=== PATIENT | male | born 1990 | race African-American/Black ===

== ENCOUNTER 2020-01-10 08:51 | Emergency (ER) | payer OTHER ==
[~2020-01-10] VITALS: Ht 182.9 cm; Wt 68.0 kg
[2020-01-10 08:55] VITALS: BP 146/93
[2020-01-10] MEDS ORDERED: METOCLOPRAMIDE 10 MG/2 ML INJ VIAL IVP ONE (09:00)
[2020-01-10] MEDS ORDERED: NACL 0.9% 1,000 ML IV ONE (09:00)
--- NOTE | 2020-01-10 09:01 | NUR ---
29 YO MALE BIBA AB PAIN RADIAITNG TO BACK WITH N/V/D X 1 DAY ADMITS TO SMOKING MARIJUANA PMH- DENIES
[2020-01-10] MEDS ORDERED: KETOROLAC 30 MG/ML VIAL IVP ONE (09:05)
[2020-01-10 09:19] LABS: BASOPHILS % (AUTO) 0.6 % (0.0-2.0); EOSINOPHILS % (AUTO) 0.2 % (0.0-4.0); HEMATOCRIT 48.2 % (36-52); HEMOGLOBIN 15.7 g/dL (12.0-18.0); LYMPHOCYTES # (AUTO) 0.9 K/uL (2.0-11.5); LYMPHOCYTES % (AUTO) 11.1 % (20.5-51.1); MEAN CORPUSCULAR HEMOGLOBIN 31 pg (27-31); MEAN CORPUSCULAR HGB CONC 33 g/dL (33-37); MEAN CORPUSCULAR VOLUME 95.6 fL (80-94); MONOCYTES # (AUTO) 0.5 K/uL (0.8-1.0); MONOCYTES % (AUTO) 6.2 % (1.7-9.3); NEUTROPHILS % (AUTO) 81.9 % (42.2-75.2); PLATELET COUNT (AUTO) 119 K/uL (140-450); RED BLOOD CELL COUNT(AUTO) 5.04 MIL/uL (4.20-6.10); RED CELL DISTRIBUTION WIDTH 14.3 % (11.6-13.7); WHITE BLOOD COUNT (AUTO) 8.5 K/uL (4.8-10.8)
[2020-01-10 09:34] LABS: ALBUMIN 4.4 g/dL (3.4-5.0); CARBON DIOXIDE 24.6 mmol/L (21-32); POTASSIUM 3.6 mmol/L (3.5-5.1); TOTAL BILIRUBIN 0.6 mg/dL (0.0-1.0)
[2020-01-10 10:03] LABS: APPEARANCE,URINE SL CLOUDY (CLEAR); BILIRUBIN,URINE NEGATIVE (NEGATIVE); BLOOD, URINE NEGATIVE (NEGATIVE); COLOR,URINE DARK YELLOW (YELLOW); LEUKOCYTE ESTERASE ,URINE NEGATIVE (NEGATIVE); NITRITE, URINE NEGATIVE (NEGATIVE); UGLUCOSE NEGATIVE (NEGATIVE)
[2020-01-10 10:13] VITALS: BP 142/82
[2020-01-10 10:25] LABS: BARBITURATE, URINE NEGATIVE ng/ml (NEG <=200); BENZODIAZEPINE, URINE NEGATIVE ng/mL (NEG <=200); CANNABINOID, URINE POSITIVE ng/mL (NEG <=50); COCAINE, URINE NEGATIVE ng/mL (NEG <=300); PHENCYCLIDINE SCREEN,URINE NEGATIVE ng/mL (NEG <=25)
[2020-01-10 10:26] LABS: OPIATE, URINE NEGATIVE ng/mL (NEG <=2000)
[2020-01-10 10:30] LABS: RBC,URINE 0-5 /HPF (0-5)
== END 2020-01-10 10:13 | disposition home or self-care (01) ==
LOC: MED 08:51
DX: R10.84 Generalized abdominal pain (principal); R11.2 Nausea with vomiting, unspecified; D69.6 Thrombocytopenia, unspecified; F12.10 Cannabis abuse, uncomplicated
CPT/HCPCS: 36415; 71045; 80053; 80305; 81001; 83690; 85025; 87086; 96361; 96374; 96375; 99284; G0482; J1885; J2765; J7030; Q0092

== ENCOUNTER 2022-01-17 15:02 | Emergency (ER) | payer OTHER ==
[~2022-01-17] VITALS: Ht 182.9 cm; Wt 68.0 kg
[2022-01-17 15:09] VITALS: BP 145/63
--- NOTE | 2022-01-17 15:10 | NUR ---
BIBA BLS TO ER BED 2
[2022-01-17] MEDS ORDERED: KETOROLAC 15 MG/ML VIAL IVP ONE (15:25)
[2022-01-17] MEDS ORDERED: NACL 0.9% 1,000 ML IV ONE (15:25)
[2022-01-17] MEDS ORDERED: PANTOPRAZOLE 40 MG INJ VIAL IVP ONE (15:25)
[2022-01-17] MEDS ORDERED: METOCLOPRAMIDE 10 MG/2 ML INJ VIAL IVP ONE (15:25)
--- NOTE | 2022-01-17 15:35 | NUR ---
lab at bedside.
--- NOTE | 2022-01-17 15:48 | NUR ---
radiology at bedside.
[2022-01-17 15:54] LABS: BASOPHILS % (AUTO) 0.3 % (0.0-2.0); EOSINOPHILS % (AUTO) 0.1 % (0.0-4.0); HEMATOCRIT 48.2 % (36-52); HEMOGLOBIN 15.8 g/dL (12.0-18.0); LYMPHOCYTES # (AUTO) 1.6 K/uL (2.0-11.5); LYMPHOCYTES % (AUTO) 25.7 % (20.5-51.1); MEAN CORPUSCULAR HEMOGLOBIN 31 pg (27-31); MEAN CORPUSCULAR HGB CONC 33 g/dL (33-37); MEAN CORPUSCULAR VOLUME 94.1 fL (80-94); MONOCYTES # (AUTO) 0.7 K/uL (0.8-1.0); NEUTROPHILS # (AUTO) 3.8 K/uL (1.8-7.7); NEUTROPHILS % (AUTO) 62.9 % (42.2-75.2); PLATELET COUNT (AUTO) 95 K/uL (140-450); RED BLOOD CELL COUNT(AUTO) 5.12 MIL/uL (4.20-6.10); WHITE BLOOD COUNT (AUTO) 6.1 K/uL (4.8-10.8)
[2022-01-17 16:16] LABS: ALBUMIN 4.2 g/dL (3.4-5.0); ANION GAP 12.8 (8-16); CARBON DIOXIDE 24.8 mmol/L (21-32); CREATININE 0.9 mg/dL (0.6-1.3); POTASSIUM 3.6 mmol/L (3.5-5.1); TOTAL BILIRUBIN 0.4 mg/dL (0.0-1.0)
[2022-01-17 16:21] LABS: LIPASE 109 U/L (73-393)
--- NOTE | 2022-01-17 16:26 | NUR ---
PTS XOCHILT, CALL FOR UPDATE- KIMBERLEY CALDWELL [phone]
--- NOTE | 2022-01-17 16:34 | NUR ---
Patient is being taken via gurney for imaging.
--- NOTE | 2022-01-17 16:38 | NUR ---
31 y/o male bib for abdominal pain, nausea and vomiting x2 hours ago. Patient was eating raising canes before abdominal pain started. Patient was given Zofran by EMS. Patient also c/o chest pain and tightness. Medical History: Kidney Stones NKDA
[2022-01-17] MEDS ORDERED: MORPHINE SULFATE 4 MG/ML SYR IVP ONE (17:45)
--- NOTE | 2022-01-17 17:46 | NUR ---
Patient pulled out IV. Will re-insert new IV.
--- NOTE | 2022-01-17 17:53 | NUR ---
Dr. Thompson evaluating patient at bedside.
[2022-01-17] MEDS ORDERED: HALOPERIDOL IM 5 MG/ML VIAL IVP ONE (17:55)
[2022-01-17] MEDS ORDERED: diphenhydrAMINE 50 MG/ML VIAL IVP ONE (17:55)
--- NOTE | 2022-01-17 19:20 | NUR ---
Pt report given to JAMIL Solis. Transfer of care at this time.
[2022-01-17] MEDS ORDERED: OMEP20EC11 PO (19:25)
[2022-01-17] MEDS ORDERED: HYDR-5191 PO (19:25)
[2022-01-17] MEDS ORDERED: ONDA-188 PO (19:25)
[2022-01-17 20:24] VITALS: BP 89/43
--- NOTE | 2022-01-17 20:25 | NUR ---
Patient discharged with v/s stable. Written and verbal after care instructions given and explained. Patient alert, oriented and verbalized understanding of instructions. Ambulatory with steady gait. All questions addressed prior to discharge. ID band removed. Patient advised to follow up with PMD. Rx of ZOFRAN, PRILOSEC, AND HYDROCODON-ACETAMINOPHEN given. Patient educated on indication of medication including possible reaction and side effects. Opportunity to ask questions provided and answered.
== END 2022-01-17 20:25 | disposition home or self-care (01) ==
LOC: MED 15:02
DX: R11.2 Nausea with vomiting, unspecified (principal); R10.84 Generalized abdominal pain; Z79.899 Other long term (current) drug therapy; Z79.891 Long term (current) use of opiate analgesic
CPT/HCPCS: 36415; 71045; 74176; 80053; 83690; 83880; 84484; 85025; 93005; 96361; 96374; 96375; 99285; C9113; G0482; J1200; J1630; J1885; J2270; J2765; J7030; Q0092

== ENCOUNTER 2022-03-14 10:18 | Emergency (ER) | payer OTHER ==
[~2022-03-14] VITALS: Ht 182.9 cm; Wt 68.0 kg
[~2022-03-14 10:18] MED LIST: HYDR-5191 PO; OMEP20EC11 PO; ONDA-188 PO
--- NOTE | 2022-03-14 10:26 | NUR ---
PT W/C ASSISTED TO ER BED 6
[2022-03-14 10:33] VITALS: BP 147/86
[2022-03-14] MEDS ORDERED: NACL 0.9% 1,000 ML IV ONE (10:35)
[2022-03-14] MEDS ORDERED: HALOPERIDOL IM 5 MG/ML VIAL IM ONE (10:35)
--- NOTE | 2022-03-14 11:07 | NUR ---
31/M PRESENTS TO ED WITH C/O ABDOMINAL PAIN, N/V/D AND SOB SINCE THIS MORNING. STATES HE GETS THESE EPISODES S/P SMOKING MARIJUANA, REPORTS LAST USE WAS 2 DAYS AGO. PATIENT DENIES ALCOHOL OR OTHER DRUG USE, PATIENT REPORTS 10/10 PAIN IN ALL 4 QUADRANTS, REPORTS ONE EPISODE OF DIARRHEA THIS MORNING. DENIES FEVERS, COUGH, CHILLS, CP, SOB, O2 98% UPON ARRIVAL TO ED.
[2022-03-14 11:28] LABS: BASOPHILS % (AUTO) 0.3 % (0.0-2.0); EOSINOPHILS % (AUTO) 0.4 % (0.0-4.0); HEMATOCRIT 49.7 % (36-52); HEMOGLOBIN 16.6 g/dL (12.0-18.0); LYMPHOCYTES # (AUTO) 1.4 K/uL (2.0-11.5); LYMPHOCYTES % (AUTO) 21.9 % (20.5-51.1); MEAN CORPUSCULAR HEMOGLOBIN 32 pg (27-31); MEAN CORPUSCULAR HGB CONC 33 g/dL (33-37); MONOCYTES # (AUTO) 0.5 K/uL (0.8-1.0); MONOCYTES % (AUTO) 8.6 % (1.7-9.3); NEUTROPHILS # (AUTO) 4.4 K/uL (1.8-7.7); NEUTROPHILS % (AUTO) 68.8 % (42.2-75.2); PLATELET COUNT (AUTO) 118 K/uL (140-450); RED BLOOD CELL COUNT(AUTO) 5.23 MIL/uL (4.20-6.10); RED CELL DISTRIBUTION WIDTH 14.1 % (11.6-13.7); WHITE BLOOD COUNT (AUTO) 6.3 K/uL (4.8-10.8)
[2022-03-14 11:41] LABS: ALBUMIN 4.2 g/dL (3.4-5.0); ANION GAP 12.9 (8-16); CARBON DIOXIDE 27.8 mmol/L (21-32); CREATININE 1.1 mg/dL (0.6-1.3); POTASSIUM 3.7 mmol/L (3.5-5.1); TOTAL BILIRUBIN 0.6 mg/dL (0.0-1.0)
--- NOTE | 2022-03-14 12:00 | NUR ---
PATIENT RESTING IN BED WITH EYES CLOSED, ON BEDSIDE CHEMICAL EDUCATOR. WILL CONTINUE TO MONITOR.
[2022-03-14] MEDS ORDERED: MORPHINE SULFATE 4 MG/ML SYR IM ONE (12:30)
[2022-03-14 13:07] VITALS: BP 124/83
--- NOTE | 2022-03-14 13:07 | NUR ---
IV removed, catheter intact and site benign. Applied folded 4x4 gauze and tape to stop bleeding.
--- NOTE | 2022-03-14 13:08 | NUR ---
Patient discharged with v/s stable. Written and verbal after care instructions ABOUT CYCLIC VOMITING SYNDROME given and explained. Patient verbalized understanding. Ambulatory with steady gait. All questions addressed prior to discharge. Advised to follow up with PMD.
== END 2022-03-14 13:08 | disposition home or self-care (01) ==
LOC: MED 10:18
DX: R11.15 Cyclical vomiting syndrome unrelated to migraine (principal)
CPT/HCPCS: 36415; 80053; 83690; 85025; 96360; 96372; 99284; J1630; J2270; J7030

== ENCOUNTER 2022-10-10 06:15 | Emergency (ER) | payer OTHER ==
[~2022-10-10] VITALS: Ht 182.9 cm; Wt 68.0 kg
[2022-10-10 06:20] VITALS: BP 140/99
--- NOTE | 2022-10-10 06:31 | NUR ---
rolf als to bed #6
[2022-10-10] MEDS ORDERED: NACL 0.9% 1,000 ML IV SCH (06:45)
[2022-10-10] MEDS ORDERED: ONDANSETRON 4 MG/2 ML VIAL IVP ONE (06:45)
[2022-10-10] MEDS ORDERED: KETOROLAC 30 MG/ML VIAL IVP ONE (06:45)
[2022-10-10 07:03] LABS: BASOPHILS % (AUTO) 0.2 % (0.0-2.0); EOSINOPHILS % (AUTO) 0.3 % (0.0-4.0); HEMOGLOBIN 15.5 g/dL (12.0-18.0); LYMPHOCYTES # (AUTO) 1.6 K/uL (2.0-11.5); LYMPHOCYTES % (AUTO) 16.8 % (20.5-51.1); MEAN CORPUSCULAR HEMOGLOBIN 31 pg (27-31); MEAN CORPUSCULAR HGB CONC 33 g/dL (33-37); MEAN CORPUSCULAR VOLUME 94.9 fL (80-94); MONOCYTES # (AUTO) 0.9 K/uL (0.8-1.0); MONOCYTES % (AUTO) 9.7 % (1.7-9.3); NEUTROPHILS # (AUTO) 6.8 K/uL (1.8-7.7); PLATELET COUNT (AUTO) 114 K/uL (140-450); RED BLOOD CELL COUNT(AUTO) 4.96 MIL/uL (4.20-6.10); RED CELL DISTRIBUTION WIDTH 13.4 % (11.6-13.7); WHITE BLOOD COUNT (AUTO) 9.3 K/uL (4.8-10.8)
--- NOTE | 2022-10-10 07:28 | NUR ---
Received report from JAMIL Dong for transfer of care.
--- NOTE | 2022-10-10 07:36 | NUR ---
PT RETCHING IN BED, NO EMESIS NOTED
[2022-10-10 07:40] LABS: ALBUMIN 4.3 g/dL (3.4-5.0); ANION GAP 13.6 (8-16); CARBON DIOXIDE 26.1 mmol/L (21-32); CREATININE 1.1 mg/dL (0.6-1.3); POTASSIUM 3.7 mmol/L (3.5-5.1); TOTAL BILIRUBIN 0.7 mg/dL (0.0-1.0)
--- NOTE | 2022-10-10 07:50 | NUR ---
PT REQUESTING MORPHINE FOR PAIN, DR BORJA MADE AWARE
[2022-10-10] MEDS ORDERED: HALOPERIDOL IM 5 MG/ML VIAL IM ONE (07:55)
[2022-10-10] MEDS ORDERED: MORPHINE SULFATE 4 MG/ML SYR IVP ONE (07:55)
[2022-10-10] MEDS ORDERED: ONDA8TAB87 PO (09:28)
[2022-10-10 09:37] VITALS: BP 119/56
--- NOTE | 2022-10-10 09:37 | NUR ---
Patient discharged with v/s stable. Written and verbal after care instructions given. Patient alert, oriented and verbalized understanding of instructions. Ambulatory with steady gait. All questions addressed prior to discharge. ID band removed. Patient advised to follow up with PMD. Rx of Zofran given. Opportunity to ask questions provided and answered.
--- NOTE | 2022-10-10 09:40 | NUR ---
The patient's care was reviewed and supervised by Alissa Almanzar RN.
== END 2022-10-10 09:37 | disposition home or self-care (01) ==
LOC: MED 06:15
DX: R10.9 Unspecified abdominal pain (principal); R11.2 Nausea with vomiting, unspecified; R19.7 Diarrhea, unspecified; Z79.899 Other long term (current) drug therapy
CPT/HCPCS: 36415; 80053; 83690; 85025; 96361; 96372; 96374; 96375; 99284; J1630; J1885; J2270; J2405; J7030

== ENCOUNTER 2022-10-14 07:12 | Emergency (ER) | payer OTHER ==
[~2022-10-14] VITALS: Ht 177.8 cm; Wt 72.6 kg
[2022-10-14 07:12] VITALS: BP 109/62
[~2022-10-14 07:12] MED LIST changes: +ONDA8TAB87 PO
--- NOTE | 2022-10-14 07:12 | NUR ---
TO BED AMBULATORY, BIBA FROM HOME , WITH C/O GENERALIZED ABD PAIN.
[2022-10-14] MEDS ORDERED: OMEP40EC23 PO (07:53)
[2022-10-14 07:55] VITALS: BP 109/62
--- NOTE | 2022-10-14 08:03 | NUR ---
Patient discharged with v/s stable. Written and verbal after care instructions given and explained. Patient alert, oriented and verbalized understanding of instructions. Ambulatory with steady gait. All questions addressed prior to discharge. ID band removed. Patient advised to follow up with PMD. Rx of prilosec given. Patient educated on indication of medication including possible reaction and side effects. Opportunity to ask questions provided and answered.
== END 2022-10-14 08:03 | disposition home or self-care (01) ==
LOC: MED 07:12
DX: R10.84 Generalized abdominal pain (principal); F12.10 Cannabis abuse, uncomplicated; Z79.899 Other long term (current) drug therapy; Z79.891 Long term (current) use of opiate analgesic
CPT/HCPCS: 99283

== ENCOUNTER 2022-11-20 07:24 | Emergency (ER) | payer OTHER ==
[~2022-11-20] VITALS: Ht 172.7 cm; Wt 74.8 kg
[~2022-11-20 07:24] MED LIST changes: +OMEP40EC23 PO
[2022-11-20 07:29] VITALS: BP 127/80
[2022-11-20] MEDS ORDERED: KETOROLAC 30 MG/ML VIAL IVP ONE (07:50)
[2022-11-20] MEDS ORDERED: HALOPERIDOL IM 5 MG/ML VIAL IM ONE (07:50)
[2022-11-20] MEDS ORDERED: ONDANSETRON 4 MG/2 ML VIAL IVP ONE (07:50)
--- NOTE | 2022-11-20 08:10 | NUR ---
PT BIB AMBULANCE ACLS, C/O NVD, ABD PAIN, 10/10 PAIN SINCE THIS MORNING, PT APPEARS DIAPHORETIC. IV INSERTED ON RT AC 20G. MEDICATED PER ORDER. SAFETY MAINTAINED.
--- NOTE | 2022-11-20 08:54 | NUR ---
PT STATES HE IS STILL HAVING PAIN. DR DOYLE INFORMED.
[2022-11-20] MEDS ORDERED: MORPHINE SULFATE 4 MG/ML SYR IVP ONE (09:05)
[2022-11-20] MEDS ORDERED: ONDA8TAB87 PO (09:08)
[2022-11-20 09:29] VITALS: BP 105/69
--- NOTE | 2022-11-20 09:34 | NUR ---
The patient's care was reviewed and supervised by ED Agency Nurse 8, RN, RN.
--- NOTE | 2022-11-20 09:34 | NUR ---
Patient discharged with v/s stable. Written and verbal after care instructions given and explained. Patient alert, oriented and verbalized understanding of instructions. Ambulatory with steady gait. All questions addressed prior to discharge. ID band removed. Patient advised to follow up with PMD. Rx of ONDANSETRON HCI given. Patient educated on indication of medication including possible reaction and side effects. Opportunity to ask questions provided and answered.
== END 2022-11-20 09:34 | disposition home or self-care (01) ==
LOC: MED 07:24
DX: R10.9 Unspecified abdominal pain (principal); R11.2 Nausea with vomiting, unspecified; R19.7 Diarrhea, unspecified; Z79.899 Other long term (current) drug therapy
CPT/HCPCS: 96372; 96374; 96375; 99284; J1630; J1885; J2270; J2405

== ENCOUNTER 2023-08-29 08:25 | Emergency (ER) | payer OTHER ==
[~2023-08-29] VITALS: Ht 182.9 cm; Wt 63.5 kg
[2023-08-29 08:40] VITALS: BP 118/64; PULSE 108; RESP 20; TEMP 98; O2SAT 100
[2023-08-29] MEDS ORDERED: LIDOCAINE 5% 1 EA PATCH TP ONE (09:15)
[2023-08-29] MEDS ORDERED: KETOROLAC 30 MG/ML VIAL IM ONE (09:15)
[2023-08-29] MEDS ORDERED: LID5T TP (10:04)
[2023-08-29] MEDS ORDERED: CYCL-711 PO (10:04)
[2023-08-29 10:25] VITALS: BP 120/65; PULSE 88; RESP 20; TEMP 98; O2SAT 100
== END 2023-08-29 10:25 | disposition home or self-care (01) ==
LOC: MED 08:25
DX: M25.512 Pain in left shoulder (principal); K21.9 Gastro-esophageal reflux disease without esophagitis; Z79.899 Other long term (current) drug therapy
CPT/HCPCS: 96372; 99283; J1885

== ENCOUNTER 2023-09-18 08:12 | Emergency (ER) | payer OTHER ==
[~2023-09-18] VITALS: Ht 182.9 cm; Wt 65.8 kg
[~2023-09-18 08:12] MED LIST changes: +CYCL-711 PO; +LID5T TP
[2023-09-18 08:15] VITALS: BP 150/99; PULSE 70; RESP 16; TEMP 97; O2SAT 98
[2023-09-18] MEDS: HALOPERIDOL IM 5 MG/ML VIAL IM ONE (08:58)
[2023-09-18 09:26] LABS: BASOPHILS % (AUTO) 0.5 % (0.0-2.0); EOSINOPHILS # (AUTO) 0.1 K/uL (0-0.4); EOSINOPHILS % (AUTO) 0.9 % (0.0-4.0); HEMATOCRIT 46.9 % (36-52); HEMOGLOBIN 15.9 g/dL (12.0-18.0); LYMPHOCYTES # (AUTO) 1.6 K/uL (2.0-11.5); LYMPHOCYTES % (AUTO) 19.6 % (20.5-51.1); MEAN CORPUSCULAR HEMOGLOBIN 32 pg (27-31); MEAN CORPUSCULAR HGB CONC 34 g/dL (33-37); MEAN CORPUSCULAR VOLUME 94.4 fL (80-94); MONOCYTES # (AUTO) 0.7 K/uL (0.8-1.0); MONOCYTES % (AUTO) 8.1 % (1.7-9.3); NEUTROPHILS # (AUTO) 5.9 K/uL (1.8-7.7); NEUTROPHILS % (AUTO) 70.9 % (42.2-75.2); PLATELET COUNT (AUTO) 146 K/uL (140-450); RED BLOOD CELL COUNT(AUTO) 4.97 MIL/uL (4.20-6.10); RED CELL DISTRIBUTION WIDTH 13.8 % (11.6-13.7); WHITE BLOOD COUNT (AUTO) 8.3 K/uL (4.8-10.8)
[2023-09-18 09:36] LABS: CALCIUM 8.8 mg/dL (8.5-10.1); CARBON DIOXIDE 28.2 mmol/L (21-32); POTASSIUM 4.2 mmol/L (3.5-5.1)
[2023-09-18 09:42] LABS: ALBUMIN 3.8 g/dL (3.4-5.0); BILIRUBIN,DIRECT 0.1 mg/dL (0.0-0.3); TOTAL BILIRUBIN 0.3 mg/dL (0.0-1.0); TOTAL PROTEIN, SERUM 8.5 g/dL (6.4-8.2)
[2023-09-18 09:57] LABS: AMPHETAMINE, URINE NEGATIVE ng/ml (NEG <=1000); BARBITURATE, URINE NEGATIVE ng/ml (NEG <=200); BENZODIAZEPINE, URINE NEGATIVE ng/mL (NEG <=200); CANNABINOID, URINE POSITIVE ng/mL (NEG <=50); COCAINE, URINE NEGATIVE ng/mL (NEG <=300); OPIATE, URINE NEGATIVE ng/mL (NEG <=2000); PHENCYCLIDINE SCREEN,URINE NEGATIVE ng/mL (NEG <=25)
[2023-09-18] MEDS: KETOROLAC 30 MG/ML VIAL IM ONE (12:09)
[2023-09-18] MEDS ORDERED: ONDA-188 SL (12:18)
[2023-09-18] MEDS ORDERED: BEN10 PO (12:18)
[2023-09-18 12:53] VITALS: BP 150/99; PULSE 70; RESP 16; TEMP 97; O2SAT 98
== END 2023-09-18 12:53 | disposition home or self-care (01) ==
LOC: MED 08:12
DX: R11.15 Cyclical vomiting syndrome unrelated to migraine (principal); K21.9 Gastro-esophageal reflux disease without esophagitis; Z79.899 Other long term (current) drug therapy
CPT/HCPCS: 36415; 80048; 80076; 80305; 85025; 96372; 99284; J1630; J1885

== ENCOUNTER 2023-09-21 06:31 | Emergency (ER) | payer OTHER ==
[~2023-09-21] VITALS: Ht 180.3 cm; Wt 70.3 kg
[~2023-09-21 06:31] MED LIST changes: +BEN10 PO; +ONDA-188 SL
[2023-09-21 06:38] VITALS: BP 161/89; PULSE 91; RESP 16; TEMP 98.1; O2SAT 99
[2023-09-21] MEDS: KETOROLAC 60 MG/2 ML VIAL IM ONE (07:00)
[2023-09-21] MEDS: HALOPERIDOL IM 5 MG/ML VIAL IM ONE (07:01)
[2023-09-21] MEDS ORDERED: IBUP-2213 PO (07:14)
[2023-09-21] MEDS ORDERED: PROM25TA27 PO (07:14)
[2023-09-21 08:32] VITALS: BP 126/70; PULSE 88; RESP 19; TEMP 98.3; O2SAT 95
== END 2023-09-21 08:32 | disposition home or self-care (01) ==
LOC: MED 06:31
DX: R11.2 Nausea with vomiting, unspecified (principal); R10.84 Generalized abdominal pain; K21.9 Gastro-esophageal reflux disease without esophagitis; Z79.899 Other long term (current) drug therapy
CPT/HCPCS: 96372; 99284; J1630; J1885

== ENCOUNTER 2023-09-25 02:49 | Emergency (ER) | payer OTHER ==
[~2023-09-25] VITALS: Ht 180.3 cm; Wt 68.0 kg
[~2023-09-25 02:49] MED LIST changes: +IBUP-2213 PO; +PROM25TA27 PO
[2023-09-25 02:56] VITALS: BP 134/90; PULSE 84; RESP 16; TEMP 98.5; O2SAT 99
[2023-09-25] MEDS ORDERED: KETOROLAC 60 MG/2 ML VIAL IM ONE (03:25)
[2023-09-25] MEDS ORDERED: HALOPERIDOL IM 5 MG/ML VIAL ONE (03:30)
[2023-09-25] MEDS ORDERED: MORPHINE SULFATE 4 MG/ML SYR ONE (03:30)
[2023-09-25] MEDS: HALOPERIDOL IM 5 MG/ML VIAL IM ONE (03:33)
[2023-09-25] MEDS: MORPHINE SULFATE 4 MG/ML SYR IM ONE (03:34)
[2023-09-25 04:02] VITALS: BP 140/95; PULSE 59; RESP 18; TEMP 97.6; O2SAT 100
== END 2023-09-25 04:02 | disposition home or self-care (01) ==
LOC: MED 02:49
DX: R11.15 Cyclical vomiting syndrome unrelated to migraine (principal); R10.13 Epigastric pain; K21.9 Gastro-esophageal reflux disease without esophagitis; F12.90 Cannabis use, unspecified, uncomplicated; Z79.899 Other long term (current) drug therapy
CPT/HCPCS: 96372; 99284; J1630; J2270

== ENCOUNTER 2023-11-07 12:25 | Emergency (ER) | payer OTHER ==
[~2023-11-07] VITALS: Ht 182.9 cm; Wt 68.0 kg
[2023-11-07 12:50] VITALS: BP 117/68; PULSE 100; RESP 16; TEMP 97.7; O2SAT 99
[2023-11-07] MEDS: KETOROLAC 30 MG/ML VIAL IM ONE (13:55)
[2023-11-07] MEDS ORDERED: IBUP-2213 PO (14:28)
[2023-11-07] MEDS ORDERED: CYCL-711 PO (14:28)
[2023-11-07 15:02] VITALS: BP 107/66; PULSE 68; O2SAT 99
== END 2023-11-07 15:02 | disposition home or self-care (01) ==
LOC: MED 12:25
DX: S13.4XXA Sprain of ligaments of cervical spine, initial encounter (principal); S43.402A Unspecified sprain of left shoulder joint, initial encounter; S43.401A Unspecified sprain of right shoulder joint, initial encounter; R51.9 Headache, unspecified; K21.9 Gastro-esophageal reflux disease without esophagitis; F12.90 Cannabis use, unspecified, uncomplicated; Z79.899 Other long term (current) drug therapy; V89.2XXA Person injured in unspecified motor-vehicle accident, traffic, initial encounter; Y93.89 Activity, other specified; Y92.410 Unspecified street and highway as the place of occurrence of the external cause; Y99.8 Other external cause status
CPT/HCPCS: 72040; 73030; 96372; 99284; J1885

== ENCOUNTER 2024-01-06 10:01 | Emergency (ER) | payer OTHER ==
[~2024-01-06] VITALS: Ht 172.7 cm; Wt 60.8 kg
[~2024-01-06 10:01] MED LIST changes: +HYDR-5071 PO; -HYDR-5191 PO
[2024-01-06 10:11] VITALS: BP 135/96; PULSE 80; RESP 18; TEMP 97; O2SAT 99
[2024-01-06] MEDS: NACL 0.9% 1,000 ML IV ONE (10:25)
[2024-01-06] MEDS: HALOPERIDOL IM 5 MG/ML VIAL IVP ONE (10:49)
[2024-01-06] MEDS: KETOROLAC 30 MG/ML VIAL IVP ONE (10:49)
[2024-01-06 11:01] LABS: BASOPHILS % (AUTO) 0.4 % (0.0-2.0); EOSINOPHILS % (AUTO) 0.3 % (0.0-4.0); HEMATOCRIT 47.4 % (36-52); LYMPHOCYTES # (AUTO) 1.7 K/uL (2.0-11.5); LYMPHOCYTES % (AUTO) 18.8 % (20.5-51.1); MEAN CORPUSCULAR HEMOGLOBIN 32 pg (27-31); MEAN CORPUSCULAR HGB CONC 34 g/dL (33-37); MEAN CORPUSCULAR VOLUME 94.3 fL (80-94); MONOCYTES # (AUTO) 0.5 K/uL (0.8-1.0); MONOCYTES % (AUTO) 5.7 % (1.7-9.3); NEUTROPHILS # (AUTO) 6.9 K/uL (1.8-7.7); NEUTROPHILS % (AUTO) 74.8 % (42.2-75.2); PLATELET COUNT (AUTO) 114 K/uL (140-450); RED BLOOD CELL COUNT(AUTO) 5.02 MIL/uL (4.20-6.10); RED CELL DISTRIBUTION WIDTH 13.6 % (11.6-13.7); WHITE BLOOD COUNT (AUTO) 9.2 K/uL (4.8-10.8)
[2024-01-06 11:14] LABS: ANION GAP 14.3 (8-16); CALCIUM 9.5 mg/dL (8.5-10.1); CARBON DIOXIDE 22.9 mmol/L (21-32); CREATININE 0.9 mg/dL (0.6-1.3); POTASSIUM 4.2 mmol/L (3.5-5.1)
[2024-01-06] MEDS: MORPHINE SULFATE 4 MG/ML SYR IVP ONE (12:16)
[2024-01-06 12:25] LABS: ALBUMIN 3.9 g/dL (3.4-5.0); BILIRUBIN,DIRECT 0.1 mg/dL (0.0-0.3); TOTAL PROTEIN, SERUM 7.3 g/dL (6.4-8.2)
[2024-01-06 12:26] LABS: TOTAL BILIRUBIN 0.5 mg/dL (0.0-1.0)
[2024-01-06] MEDS ORDERED: ONDA-188 PO (12:53)
[2024-01-06 13:25] VITALS: BP 111/61; PULSE 96; RESP 21; TEMP 98.3; O2SAT 100
[2024-01-07] MEDS ORDERED: CAPS42.514 TP (11:14)
[2024-01-07] MEDS ORDERED: METO-485 PO (11:14)
== END 2024-01-06 13:25 | disposition home or self-care (01) ==
LOC: MED 10:01
DX: R11.2 Nausea with vomiting, unspecified (principal); R10.84 Generalized abdominal pain; K21.9 Gastro-esophageal reflux disease without esophagitis; Z79.1 Long term (current) use of non-steroidal anti-inflammatories (NSAID); Z79.899 Other long term (current) drug therapy
CPT/HCPCS: 36415; 80048; 80076; 83690; 85025; 96361; 96374; 96375; 99284; J1630; J1885; J2270; J7030

== ENCOUNTER 2024-01-07 07:43 | Emergency (ER) | payer OTHER ==
[~2024-01-07] VITALS: Ht 182.9 cm; Wt 59.0 kg
[2024-01-07 07:48] VITALS: BP 160/98; PULSE 62; RESP 18; TEMP 97.8; O2SAT 98
[2024-01-07] MEDS: DEXT 5% /NACL 0.9% 1,000 ML IV ONE (09:11)
[2024-01-07] MEDS: HALOPERIDOL IM 5 MG/ML VIAL IVP ONE (09:12)
[2024-01-07] MEDS: diphenhydrAMINE 50 MG/ML VIAL IVP ONE (09:18)
[2024-01-07 09:21] LABS: BASOPHILS % (AUTO) 0.3 % (0.0-2.0); EOSINOPHILS % (AUTO) 0.2 % (0.0-4.0); HEMATOCRIT 44.5 % (36-52); LYMPHOCYTES # (AUTO) 1.4 K/uL (2.0-11.5); MEAN CORPUSCULAR HEMOGLOBIN 32 pg (27-31); MEAN CORPUSCULAR HGB CONC 34 g/dL (33-37); MEAN CORPUSCULAR VOLUME 94.1 fL (80-94); MONOCYTES # (AUTO) 0.5 K/uL (0.8-1.0); MONOCYTES % (AUTO) 7.4 % (1.7-9.3); NEUTROPHILS % (AUTO) 72.1 % (42.2-75.2); PLATELET COUNT (AUTO) 103 K/uL (140-450); RED BLOOD CELL COUNT(AUTO) 4.73 MIL/uL (4.20-6.10); RED CELL DISTRIBUTION WIDTH 13.3 % (11.6-13.7); WHITE BLOOD COUNT (AUTO) 6.9 K/uL (4.8-10.8)
[2024-01-07 09:45] LABS: ANION GAP 13.5 (8-16); CALCIUM 8.8 mg/dL (8.5-10.1); CARBON DIOXIDE 26.9 mmol/L (21-32); POTASSIUM 3.4 mmol/L (3.5-5.1)
[2024-01-07 09:47] LABS: ALBUMIN 3.6 g/dL (3.4-5.0); BILIRUBIN,DIRECT 0.2 mg/dL (0.0-0.3); TOTAL BILIRUBIN 0.6 mg/dL (0.0-1.0); TOTAL PROTEIN, SERUM 6.7 g/dL (6.4-8.2)
[2024-01-07 11:00] VITALS: BP 138/93; PULSE 67; RESP 20; O2SAT 100
[2024-01-07] MEDS ORDERED: CAPS42.514 TP (11:14)
[2024-01-07] MEDS ORDERED: METO-485 PO (11:14)
== END 2024-01-07 11:13 | disposition home or self-care (01) ==
LOC: MED 07:43
DX: R11.2 Nausea with vomiting, unspecified (principal); E03.9 Hypothyroidism, unspecified; F12.90 Cannabis use, unspecified, uncomplicated; Z71.6 Tobacco abuse counseling; Z79.899 Other long term (current) drug therapy
CPT/HCPCS: 36415; 74177; 80048; 80076; 83690; 85025; 96361; 96374; 96375; 99285; J1200; J1630; Q9967

== ENCOUNTER 2024-05-23 13:51 | Emergency (ER) | payer OTHER ==
[~2024-05-23] VITALS: Ht 182.9 cm; Wt 68.0 kg
[~2024-05-23 13:51] MED LIST changes: +CAPS42.514 TP; +METO-485 PO
[2024-05-23 14:10] VITALS: BP 117/65; PULSE 62; RESP 16; TEMP 98; O2SAT 99
[2024-05-23] MEDS: HALOPERIDOL IM 5 MG/ML VIAL IM ONE (14:43)
[2024-05-23 15:38] LABS: BASOPHILS % (AUTO) 0.4 % (0.0-2.0); EOSINOPHILS % (AUTO) 0.3 % (0.0-4.0); HEMATOCRIT 51.2 % (36-52); HEMOGLOBIN 17.1 g/dL (12.0-18.0); LYMPHOCYTES % (AUTO) 21.4 % (20.5-51.1); MEAN CORPUSCULAR HEMOGLOBIN 31 pg (27-31); MEAN CORPUSCULAR HGB CONC 33 g/dL (33-37); MEAN CORPUSCULAR VOLUME 94.2 fL (80-94); MONOCYTES # (AUTO) 0.7 K/uL (0.8-1.0); MONOCYTES % (AUTO) 7.8 % (1.7-9.3); NEUTROPHILS # (AUTO) 6.5 K/uL (1.8-7.7); NEUTROPHILS % (AUTO) 70.1 % (42.2-75.2); PLATELET COUNT (AUTO) 136 K/uL (140-450); RED BLOOD CELL COUNT(AUTO) 5.44 MIL/uL (4.20-6.10); RED CELL DISTRIBUTION WIDTH 14.2 % (11.6-13.7); WHITE BLOOD COUNT (AUTO) 9.2 K/uL (4.8-10.8)
[2024-05-23 15:43] LABS: ANION GAP 15.6 (8-16); CALCIUM 9.7 mg/dL (8.5-10.1); POTASSIUM 4.6 mmol/L (3.5-5.1)
[2024-05-23 15:49] LABS: ALBUMIN 4.3 g/dL (3.4-5.0); TOTAL BILIRUBIN 0.5 mg/dL (0.0-1.0); TOTAL PROTEIN, SERUM 8.5 g/dL (6.4-8.2)
[2024-05-23] MEDS: KETOROLAC 30 MG/ML VIAL IVP ONE (16:25)
[2024-05-23] MEDS ORDERED: ONDA-188 SL (17:41)
[2024-05-23] MEDS ORDERED: FAMO-90 PO (17:41)
[2024-05-23 18:00] VITALS: BP 136/86; PULSE 68; RESP 16; TEMP 97.1; O2SAT 99
[2024-05-23 18:23] LABS: AMPHETAMINE, URINE NEGATIVE ng/ml (NEG <=1000); BARBITURATE, URINE NEGATIVE ng/ml (NEG <=200); BENZODIAZEPINE, URINE NEGATIVE ng/mL (NEG <=200); CANNABINOID, URINE POSITIVE ng/mL (NEG <=50); COCAINE, URINE NEGATIVE ng/mL (NEG <=300); OPIATE, URINE NEGATIVE ng/mL (NEG <=2000); PHENCYCLIDINE SCREEN,URINE NEGATIVE ng/mL (NEG <=25)
== END 2024-05-23 18:00 | disposition home or self-care (01) ==
LOC: MED 13:51
DX: R11.2 Nausea with vomiting, unspecified (principal); F12.90 Cannabis use, unspecified, uncomplicated; R11.15 Cyclical vomiting syndrome unrelated to migraine; Z86.39 Personal history of other endocrine, nutritional and metabolic disease; Z79.899 Other long term (current) drug therapy
CPT/HCPCS: 36415; 71045; 80053; 80305; 83690; 85025; 93005; 96372; 96374; 99285; J1630; J1885

== ENCOUNTER 2024-05-25 12:19 | Emergency (ER) | payer OTHER ==
[~2024-05-25] VITALS: Ht 182.9 cm; Wt 68.0 kg
[~2024-05-25 12:19] MED LIST changes: +FAMO-90 PO
[2024-05-25 12:26] VITALS: BP 119/77; PULSE 65; RESP 20; TEMP 97.1; O2SAT 65
[2024-05-25] MEDS: KETOROLAC 30 MG/ML VIAL IVP ONE (12:50)
[2024-05-25] MEDS: NACL 0.9% 1,000 ML IV ONE (12:51)
[2024-05-25] MEDS: HALOPERIDOL IM 5 MG/ML VIAL IM ONE (12:52)
[2024-05-25] MEDS: FAMOTIDINE 20 MG/2 ML VIAL IVP ONE (12:52)
[2024-05-25 13:59] LABS: BASOPHILS % (AUTO) 0.2 % (0.0-2.0); HEMATOCRIT 49.1 % (36-52); HEMOGLOBIN 16.5 g/dL (12.0-18.0); LYMPHOCYTES # (AUTO) 1.4 K/uL (2.0-11.5); LYMPHOCYTES % (AUTO) 21.2 % (20.5-51.1); MEAN CORPUSCULAR HEMOGLOBIN 31 pg (27-31); MEAN CORPUSCULAR HGB CONC 34 g/dL (33-37); MEAN CORPUSCULAR VOLUME 92.8 fL (80-94); MONOCYTES # (AUTO) 0.6 K/uL (0.8-1.0); MONOCYTES % (AUTO) 8.8 % (1.7-9.3); NEUTROPHILS # (AUTO) 4.6 K/uL (1.8-7.7); NEUTROPHILS % (AUTO) 69.8 % (42.2-75.2); PLATELET COUNT (AUTO) 115 K/uL (140-450); RED BLOOD CELL COUNT(AUTO) 5.29 MIL/uL (4.20-6.10); WHITE BLOOD COUNT (AUTO) 6.6 K/uL (4.8-10.8)
[2024-05-25 14:25] VITALS: BP 110/69; PULSE 65; RESP 18; TEMP 97.1; O2SAT 99
[2024-05-25 14:27] LABS: ANION GAP 16.7 (8-16); CALCIUM 8.6 mg/dL (8.5-10.1); CARBON DIOXIDE 23.5 mmol/L (21-32); POTASSIUM 4.2 mmol/L (3.5-5.1)
[2024-05-25 14:31] LABS: ALBUMIN 3.7 g/dL (3.4-5.0); BILIRUBIN,DIRECT 0.1 mg/dL (0.0-0.3); TOTAL BILIRUBIN 0.6 mg/dL (0.0-1.0); TOTAL PROTEIN, SERUM 7.3 g/dL (6.4-8.2)
== END 2024-05-25 14:24 | disposition home or self-care (01) ==
LOC: MED 12:19
DX: R11.2 Nausea with vomiting, unspecified (principal); F12.90 Cannabis use, unspecified, uncomplicated; R19.7 Diarrhea, unspecified; R07.9 Chest pain, unspecified; K21.9 Gastro-esophageal reflux disease without esophagitis; Z86.39 Personal history of other endocrine, nutritional and metabolic disease; Z79.899 Other long term (current) drug therapy
CPT/HCPCS: 36415; 80048; 80076; 83690; 85025; 93005; 96361; 96372; 96374; 96375; 99284; J1630; J1885; J3490; J7030